=== PATIENT | female | born 1950 | race Caucasian/White ===

== ENCOUNTER 2023-11-21 04:18 | Day surgery (SDC) | payer OTHER ==
[~2023-11-21] VITALS: Ht 152.4 cm; Wt 82.6 kg
[~2023-11-21 04:18] MED LIST: BALANCED SALT 15 ML OPHTHALMIC IRRIG.SOLN ONE; LIDOCAINE 2%/EPI 1:200,000/PF 20 ML VIAL ONE; MOXIFLOXACIN HCL 0.5% 3 ML OPHTHALMIC SOLUTION ONE; NEOMYCIN/POLYMYXIN B/DEXAMETH 3.5 GM OPHTHALMIC OINTMENT ONE; PHENYLEPHRINE HCL 2.5% 2 ML OPHTHALMIC SOLUTION ONE; POVIDONE-IODINE 5% 30 ML OPHTHALMIC SOLUTION ONE; PrednisoLONE ACETATE 1% 5 ML OPHTHALMIC SUSPENSION ONE; RINGERS SOLUTION,LACTATED 1,000 ML IV ONE; RINGERS SOLUTION,LACTATED 500 ML IV ONE; TETRACAINE HCL/PF 0.5% 4 ML OPHTHALMIC SOLUTION ONE
[2023-11-21] MEDS: PHENYLEPHRINE HCL 2.5% 2 ML OPHTHALMIC SOLUTION OS ONE (04:54)
[2023-11-21] MEDS: MOXIFLOXACIN HCL 0.5% 3 ML OPHTHALMIC SOLUTION OS ONE (04:54)
[2023-11-21] MEDS: TETRACAINE HCL/PF 0.5% 4 ML OPHTHALMIC SOLUTION OS ONE (04:54)
[2023-11-21] MEDS: RINGERS SOLUTION,LACTATED 500 ML IV ONE (04:54)
[2023-11-21] MEDS ORDERED: TELM1TAB42 PO (05:14)
[2023-11-21] MEDS ORDERED: MitoMYcin 0.2 MG/VIAL KIT FOR OPHTHALMIC USE OS ONE (06:00)
[2023-11-21] MEDS ORDERED: ACETAMINOPHEN 325 MG TABLET PO PRN (06:00)
[2023-11-21] MEDS ORDERED: FentaNYL CITRATE PF 100 MCG/2 ML VIAL ONE (07:01)
[2023-11-21] MEDS ORDERED: MIDAZOLAM HCL 2 MG/2 ML VIAL ONE (07:01)
[2023-11-21] MEDS ORDERED: POVIDONE-IODINE 5% 30 ML OPHTHALMIC SOLUTION ONE (08:01)
== END 2023-11-21 09:20 | disposition home or self-care (01) ==
LOC: SURGERY 04:18
PROVIDERS: ATTEND Ophthalmology
DX: H11.002 Unspecified pterygium of left eye (principal); I10 Essential (primary) hypertension; E66.9 Obesity, unspecified; J45.909 Unspecified asthma, uncomplicated; Z86.73 Personal history of transient ischemic attack (TIA), and cerebral infarction without residual deficits; Z90.49 Acquired absence of other specified parts of digestive tract; Z90.710 Acquired absence of both cervix and uterus; Z98.890 Other specified postprocedural states; Z68.35 Body mass index [BMI] 35.0-35.9, adult
CPT/HCPCS: 65426; 93005; J3010; J2250; J7120; V2790

== ENCOUNTER 2024-05-12 05:51 | Day surgery (SDC) | payer OTHER ==
[~2024-05-12] VITALS: Ht 152.4 cm; Wt 77.2 kg
[~2024-05-12 05:51] MED LIST changes: -BALANCED SALT 15 ML OPHTHALMIC IRRIG.SOLN ONE; +CYCLOPENTOLATE HCL 1% 2 ML OPHTHALMIC SOLUTION ONE; +KETOROLAC TROMETHAMINE 0.5% 5 ML OPHTHALMIC SOLUTION ONE; -LIDOCAINE 2%/EPI 1:200,000/PF 20 ML VIAL ONE; -NEOMYCIN/POLYMYXIN B/DEXAMETH 3.5 GM OPHTHALMIC OINTMENT ONE; -POVIDONE-IODINE 5% 30 ML OPHTHALMIC SOLUTION ONE; -PrednisoLONE ACETATE 1% 5 ML OPHTHALMIC SUSPENSION ONE; -RINGERS SOLUTION,LACTATED 1,000 ML IV ONE; +TELM1TAB84 PO; +TROPICAMIDE 1% 2 ML OPHTHALMIC SOLUTION ONE
[2024-05-12] MEDS ORDERED: TETRACAINE HCL/PF 0.5% 4 ML OPHTHALMIC SOLUTION ONE (06:21)
[2024-05-12] MEDS ORDERED: BALANCED SALT 15 ML OPHTHALMIC IRRIG.SOLN ONE ×2 (06:22→06:47)
[2024-05-12] MEDS ORDERED: PrednisoLONE ACETATE 1% 5 ML OPHTHALMIC SUSPENSION ONE (06:35)
[2024-05-12] MEDS: RINGERS SOLUTION,LACTATED 500 ML IV ONE (06:41)
[2024-05-12] MEDS: TETRACAINE HCL/PF 0.5% 4 ML OPHTHALMIC SOLUTION OD ONE (06:42)
[2024-05-12] MEDS: MOXIFLOXACIN HCL 0.5% 3 ML OPHTHALMIC SOLUTION OD ONE (06:42)
[2024-05-12] MEDS: PHENYLEPHRINE HCL 2.5% 2 ML OPHTHALMIC SOLUTION OD ONE (06:42)
[2024-05-12] MEDS ORDERED: MIDAZOLAM HCL 2 MG/2 ML VIAL ONE (06:47)
[2024-05-12] MEDS ORDERED: FentaNYL CITRATE PF 100 MCG/2 ML VIAL ONE (06:47)
[2024-05-12] MEDS: LIDOCAINE/PF 2% 5 ML VIAL ONE (07:00)
[2024-05-12] MEDS: POVIDONE-IODINE 5% 30 ML OPHTHALMIC SOLUTION ONE (07:00)
[2024-05-12] MEDS ORDERED: ACETAMINOPHEN 325 MG TABLET PO PRN (07:00)
[2024-05-12] MEDS: BALANCED SALT 15 ML OPHTHALMIC IRRIG.SOLN ONE (07:00)
[2024-05-12] MEDS: MitoMYcin 0.2 MG/VIAL KIT FOR OPHTHALMIC USE OD ONE (07:17)
[2024-05-12] MEDS: NEOMYCIN/POLYMYXIN B/DEXAMETH 3.5 GM OPHTHALMIC OINTMENT ONE (07:18)
== END 2024-05-12 09:10 | disposition home or self-care (01) ==
LOC: SURGERY 05:51
PROVIDERS: ATTEND Ophthalmology
DX: H11.001 Unspecified pterygium of right eye (principal); Z79.899 Other long term (current) drug therapy; Z90.710 Acquired absence of both cervix and uterus; Z90.49 Acquired absence of other specified parts of digestive tract; I10 Essential (primary) hypertension; J45.909 Unspecified asthma, uncomplicated; Z86.73 Personal history of transient ischemic attack (TIA), and cerebral infarction without residual deficits; Z98.890 Other specified postprocedural states
CPT/HCPCS: 65426; 93005; J3010; J3490; J2250; J7120; V2790